=== PATIENT | male | born 1965 | race Caucasian/White ===

== ENCOUNTER → 2017-01-18 | Day surgery (SDC) | payer OTHER ==
[2017-01-10 15:34] VITALS: Ht 182.9 cm; Wt 81.8 kg
[~2017-01-18] VITALS: Ht 182.9 cm; Wt 81.8 kg
[~2017-01-18] MED LIST: ASPI81TA28 PO; ATEN50TA8 PO; ATOR-24 PO; DEXL60CA4 PO; ESCI1TAB9 PO; HYG/25 PO; INSU100I23 SQ; LIDOCAINE HCL 2% 2 ML VIAL (20MG/ML) ONE; LIRA18IN SQ; LISI40TA PO; METF1000 PO; NVLG SQ; POTA1POW PO; PROPOFOL IV EMULSION 10 MG/ML 20 ML VIAL IV ONE
--- NOTE | 2017-01-18 09:05 | Endo History and Physical ---
History & Physical Date of Service: Jan 18, 2017. Chief Complaint: HX OF BRAUN'S Referring Physician: DR. EDWARDS History of Present Illness H/o braun's Past Medical History Diabetes, Reflux Past Surgical History Hx Cardiac Surgery: No Hx Internal Defibrillator: No Hx Pacemaker: No Hx Abdominal Surgery: No Hx Post-Op Nausea and Vomiting: No Hx Cancer Surgery: No Hx Thoracic Surgery: No Hx Orthopedic: Yes (L/R SHOULDER ARTHROSCOPY) Hx Urinary Tract Surgery: No Family History None Social History Smoking Status: Never Smoker Hx Substance Use: No Hx Alcohol Use: No Allergies Coded Allergies: NO KNOWN DRUG ALLERGIES (Verified Allergy, Mild, ., 01/10/17) BEE STING (Verified Allergy, Unknown, can't breathe, 01/10/17) Current Medications Reported Home Medications Medications Dose Route/Sig Max Daily Dose Days Date Category Aspirin Ec (Aspirin) 81 Mg Tab 81 Mg PO QAM 01/10/17 Reported Klor-Con Pwd (Potassium Chloride) 20 Meq Pack 20 Meq PO QAM 01/10/17 Reported Victoza (Liraglutide) 18 Mg/3 Ml Inj 1.8 Ml SQ QAM 01/10/17 Reported Basaglar Kwikpen (Insulin Glargine) 100 Unit/Ml Inj 50 Units SQ HS 01/10/17 Reported Novolog (Insulin Aspart) 100 Units/Ml Inj 60 Units SQ DINNER 01/10/17 Reported Novolog (Insulin Aspart) 100 Units/Ml Inj 22 Units SQ LUNCH 01/10/17 Reported Hygroton (Chlorthalidone) 25 Mg Tab 12.5 Mg PO QAM 10/01/13 Reported Lexapro (Escitalopram Oxalate) 10 Mg Tab 10 Mg PO QPM 10/01/13 Reported Lipitor (Atorvastatin Calcium) 40 Mg Tab 40 Mg PO QAM 10/01/13 Reported Dexilant (Dexlansoprazole) 60 Mg Cap 60 Mg PO QAM 10/01/13 Reported Glucophage (Metformin Hcl) 1,000 Mg Tab 1,000 Mg PO BID 10/01/13 Reported Prinivil (Lisinopril) 40 Mg Tab 40 Mg PO QAM 04/18/11 Reported Tenormin (Atenolol) 50 Mg Tab 50 Mg PO QAM 04/18/11 Reported Vital Signs Weight (Kilograms): 81.82 Height (Feet): 6 Height (Inches): 0 Date Time Temp Pulse Resp B/P (MAP) Pulse Ox O2 Delivery O2 Flow Rate FiO2 01/18/17 08:28 36.6 98 20 105/83 (90) 98 Room Air Physical Exam General Appearance: no apparent distress Respiratory/Chest: Auscultation: breath sounds normal Cardiovascular: Heart Auscultation: RRR Abdomen: Inspection & Palpation: soft Assessment and Plan H/o lizabeth's- EGD
--- NOTE | 2017-01-18 09:41 | Discharge Instructions ---
Endoscopy Patient Instructions Date / Procedure(s) Performed Jan 18, 2017. EGD Allergy Information Coded Allergies: NO KNOWN DRUG ALLERGIES (Verified Allergy, Mild, ., 01/10/17) BEE STING (Verified Allergy, Unknown, can't breathe, 01/10/17) Discharge Date / Findings Jan 18, 2017. Short segment Mendez's, biopsied Medication Instructions Stopped Medication(s): aspirin 01/17/17 Resume aspirin today. Provider Instructions Activity Restrictions - No exercising or heavy lifting for 24 hours. - Do not drink alcohol the day of the procedure. - Do not drive a car or operate machinery until the day after the procedure. - Do not make any important decisions or sign important papers in 24 hours after the procedure. Following Day: - Return to full activity which may include returning to work/school. Diet Start your diet with liquids and light foods (jello, soup, juice, toast). Then eat your usual diet if not nauseated. Treatment For Common After Affects For mild abdominal pain, bloating, or excessive gas: - Rest - Eat lightly - Lie on right side Follow-Up Information Follow-up with DR. EDWARDS as scheduled Anesthesia Information What You Should Know You have had a procedure that required some medicine to reduce anxiety and discomfort. This treatment is called moderate sedation. After receiving the treatment, you may be sleepy, but you will be able to breathe on your own. The effects of the treatment may last for several hours. Follow these instructions along with Activity/Diet recommendations noted above: * Do NOT do anything where dizziness or clumsiness would be dangerous. * Rest quietly at home today, then you can be up and about tomorrow. * Have a responsible person stay with you the rest of today. * You may have had an I.V. today. If so, you may take the dressing off later today. Recommendations Call your doctor if: * Trouble breathing * Continuous vomiting for more than 24 hours * Temperature above 101 degrees * Severe abdominal pain or bloating * Pain not relieved by pain medicine ordered * There is increased drainage or redness from any incision * A large amount of rectal bleeding greater than 2-3 tablespoons. (If you had a polyp/s removed or have hemorrhoids, a small amount of blood - from the rectum is to be expected.) * You have any unanswered questions or concerns. IN THE EVENT OF A SERIOUS EMERGENCY, GO TO THE NEAREST EMERGENCY ROOM Your discharge instructions were prepared by provider Rajesh Fischer. Patient Instructions Signature Page Karlo Wiseman Patient (or Guardian) Signature/Date: I have read and understand the instructions given to me by my caregivers. Caregiver/RN/Doctor Signature/Date: The above-named patient and/or guardian has received patient instructions on this date. + Original Patient Signature Page (only) stays with chart. Please make copy for patient.
--- NOTE | 2017-01-18 09:41 | GI REPORT ---
Procedure Date: 01/18/2017 9:06 AM Procedure: Upper GI endoscopy Indications: Follow-up of Mendez's esophagus Medicines: See the Anesthesia note for documentation of the administered medications Complications: No immediate complications. Estimated Blood Loss: Estimated blood loss: none. Procedure: Pre-Anesthesia Assessment: - ASA Grade Assessment: II - A patient with mild systemic disease. After obtaining informed consent, the endoscope was passed under direct vision. Throughout the procedure, the patient's blood pressure, pulse, and oxygen saturations were monitored continuously. The scope was introduced through the mouth, and advanced to the second part of duodenum. The upper GI endoscopy was accomplished without difficulty. The patient tolerated the procedure well. Findings: The esophagus and gastroesophageal junction were examined with white light from a forward view and retroflexed position. 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 These changes involved the mucosa at the upper extent of the gastric folds (36 cm from the incisors) extending to the Z-line (34 cm from the incisors). One tongue of salmon-colored mucosa was present. The maximum longitudinal extent of these esophageal mucosal changes was 2 cm in length. Mucosa was biopsied with a cold forceps for histology. There was a small hiatal hernia. The stomach and duodenum were normal. 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 Biopsied. Recommendation: - Discharge patient to home. Follow up pathology results. Repeat exam in 3 years. Rajesh Saravia M.D. Rajesh Saravia MD 01/18/2017 9:40:51 AM This report has been signed electronically. Note Initiated On: 01/18/2017 9:06 AM I attest to the content of the Intraoperative Record and orders documented therein, exceptions below
[2017-01-18 10:00] VITALS: BP 120/65; PULSE 87; O2SAT 98
--- NOTE | 2017-01-18 10:38 | Anesthesiology Progress Note ---
Anesthesia Post Op Note Date & Time Jan 18, 2017 at 10:38 Vital Signs Pain Intensity: 0 Vital Signs Past 12 Hours Date Time Temp Pulse Resp B/P (MAP) Pulse Ox O2 Delivery O2 Flow Rate FiO2 01/18/17 10:00 87 20 120/65 (83) 98 Room Air 01/18/17 09:45 92 20 108/65 (79) 97 Room Air 01/18/17 09:30 96 20 109/73 (85) 94 Room Air 01/18/17 08:28 36.6 98 20 105/83 (90) 98 Room Air Notes Mental Status: alert / awake / arousable, participated in evaluation Pt Amnestic to Procedure: Yes Nausea / Vomiting: adequately controlled Pain: adequately controlled Airway Patency, RR, SpO2: stable & adequate BP & HR: stable & adequate Hydration State: stable & adequate Anesthetic Complications: no major complications apparent
== END | disposition home or self-care (01) ==
LOC: C.GI 08:05
PROVIDERS: ATTEND Internal Medicine Gastroenterology
DX: K22.70 Barrett's esophagus without dysplasia (principal); K44.9 Diaphragmatic hernia without obstruction or gangrene; I10 Essential (primary) hypertension; E11.9 Type 2 diabetes mellitus without complications; Z79.4 Long term (current) use of insulin; F41.9 Anxiety disorder, unspecified; Z79.899 Other long term (current) drug therapy; Z68.24 Body mass index [BMI] 24.0-24.9, adult